=== PATIENT | female | born 1960 | race African-American/Black ===

== ENCOUNTER 2017-05-24 23:37 | Emergency (ER) | payer MEDICARE ==
[2017-05-24] MEDS ORDERED: Adacel (T-DAP) 0.5 ML VIAL ONE (23:52)
[2017-05-25] MEDS ORDERED: Bacitracin Zinc 1 Packet ONE ×2 (00:27→01:33)
[2017-05-25] MEDS ORDERED: Lidocaine 1% PF 5 ML VIAL ONE (00:27)
== END 2017-05-25 01:37 | disposition home or self-care (01) ==
LOC: ERS 23:37
DX: S91.311A Laceration without foreign body, right foot, initial encounter (principal); Z23 Encounter for immunization; I10 Essential (primary) hypertension; E11.9 Type 2 diabetes mellitus without complications; Z79.899 Other long term (current) drug therapy; Z79.4 Long term (current) use of insulin; W25.XXXA Contact with sharp glass, initial encounter
CPT/HCPCS: 12002; 90471; 90715; J2001

== ENCOUNTER 2017-12-25 08:55 | Emergency (ER) | payer MEDICARE ==
[2017-12-25] MEDS ORDERED: Ondansetron ODT 8 MG TAB ONE (09:35)
[2017-12-25] MEDS ORDERED: Famotidine 20 MG TAB ONE (09:35)
[2017-12-25] MEDS ORDERED: Mag-Al 1200 mg/1200 mg/30 ML UDCUP ONE (09:38)
[2017-12-25] MEDS ORDERED: Lidocaine Viscous Sol 2% 15 ml UD Cup ONE (09:38)
[2017-12-25 09:39] LABS: #Eosinphils 0.1 thou/uL (0.0-0.7); #Monocytes 0.4 thou/uL (0.11-0.59); #Neutrophils 10.2 thou/uL (1.40-6.50); %Eosinophils 0.8 % (0.0-10.0); %Lymphocytes 8.7 % (21.0-51.0); %Monocytes 3.7 % (0.0-10.0); %Neutrophils 86.7 % (42.0-75.0); Mean Corpuscular HGB CONC 34.2 g/dL (32.0-36.0); Mean Corpuscular Hemoglobin 27.2 pg (27.0-31.0); Mean Corpuscular Volume 79.6 fl (81.0-99.0); Mean Platelet Volume 9.4 fL (7.4-10.4); Platelet Count 219 thou/uL (130-400); RBC Distribution Width 14.1 % (11.5-14.5); Red Blood Cell (RBC) Count 5.89 mill/uL (4.20-5.40); White Blood Cell (WBC) Count 11.7 thou/uL (4.8-10.8)
[2017-12-25 09:56] LABS: ALT (SGPT) 28 U/L (8-55); AST (SGOT) 20 U/L (5-34); Albumin 4.5 g/dL (3.5-5.0); Alkaline Phosphatase 80 U/L (40-150); Anion Gap 16 mmol/L (10-20); BUN (Urea Nitrogen) 16 mg/dL (9.8-20.1); Bilirubin, Total 1.1 mg/dL (0.2-1.2); Calc. Creatinine Clearance 0 mL/min (70-130); Calcium 9.4 mg/dL (7.8-10.44); Carbon Dioxide 26 mmol/L (22-29); Chloride 103 mmol/L (98-107); Estimated GFR-MDRD 82; Globulin 3.1 g/dL (2.4-3.5); Glucose 246 mg/dL (70-105); Lipase 32 U/L (8-78); Potassium 3.8 mmol/L (3.5-5.1); Protein, Total 7.6 g/dL (6.0-8.3); Sodium 141 mmol/L (136-145)
[2017-12-25 11:18] LABS: Bilirubin Negative (Negative); Blood, Urine Negative (Negative); Clarity CLEAR (Clear); Glucose, Urine (Dipstick) >=1000 mg/dL (Negative); Leukocyte Negative (Negative); Nitrite Negative (Negative); Protein, Urine (Dipstick) 100 mg/dL (Neg-Trace); Specific Gravity, Urine 1.043 (1.002-1.036); Urobilinogen 0.2 mg/dL (0.2-1.0); pH, Urine 5.5 (5.0-9.0)
[2017-12-25 11:24] LABS: Bacteria/HPF None Seen HPF (None Seen); Hyaline Casts/LPF 0-3 HYALINE CAST LPF (0-3 Hyaline); Pathc Cast-AUWi Flag 0.43 (0-2.49)
== END 2017-12-25 11:31 | disposition home or self-care (01) ==
LOC: ERS 08:55
DX: K52.9 Noninfective gastroenteritis and colitis, unspecified (principal); I10 Essential (primary) hypertension; E11.9 Type 2 diabetes mellitus without complications; Z79.899 Other long term (current) drug therapy
CPT/HCPCS: 36415; 80053; 81003; 81015; 83690; 85025; 93005

== ENCOUNTER 2018-05-30 04:15 | Emergency (ER) | payer MEDICARE ==
--- NOTE | 2018-05-30 08:25 | RAD ---
CHEST 1 VIEW: HISTORY: Cough and congestion x 4 days. COMPARISON: 07/04/2014. FINDINGS: Normal cardiac silhouette. The lungs and pleural spaces are clear. No pneumothorax or osseous abnor malities. Surgical clips project over the right axilla. There is evidence of a right mastectomy. IMPRESSION: No acute cardiopulmonary process. POS: [facility]
== END 2018-05-30 05:35 | disposition home or self-care (01) ==
LOC: ERS 04:15
DX: J40 Bronchitis, not specified as acute or chronic (principal); E11.9 Type 2 diabetes mellitus without complications; I10 Essential (primary) hypertension; Z79.899 Other long term (current) drug therapy
CPT/HCPCS: 71045

== ENCOUNTER 2018-10-29 15:59 | Observation (INO) | payer MEDICARE ==
--- NOTE | 2018-10-29 16:30 | RAD ---
SINGLE VIEW CHEST: Date: 10/29/18 COMPARISON: 05/30/18. HISTORY: Intermittent chest pain for a week. FINDINGS: Single view of the chest shows a normal sized cardiomediastinal silhouette. There is no evidence of c onsolidation, mass, or pleural effusion. The bones are unremarkable. IMPRESSION: No evidence of acute cardiopulmonary disease. POS: [facility]
[2018-10-29] MEDS ORDERED: Azithromycin 500 MG VIAL ONE ×2 (16:36→18:10)
[2018-10-29] MEDS ORDERED: cefTRIAXone\\ROCEPHIN 1 GM VIAL ONE ×2 (16:37→18:10)
[2018-10-29 16:55] LABS: #Basophils 0.1 thou/uL (0.0-0.2); #Eosinphils 0.3 thou/uL (0.0-0.7); #Lymphocytes 2.9 thou/uL (1.20-3.40); #Monocytes 0.6 thou/uL (0.11-0.59); #Neutrophils 4.4 thou/uL (1.40-6.50); %Basophils 0.9 % (0.0-1.0); %Eosinophils 3.2 % (0.0-10.0); %Lymphocytes 34.9 % (21.0-51.0); %Monocytes 7.7 % (0.0-10.0); %Neutrophils 53.3 % (42.0-75.0); Hemoglobin 14.9 g/dL (12.0-16.0); Mean Corpuscular HGB CONC 34.9 g/dL (32.0-36.0); Mean Corpuscular Hemoglobin 27.4 pg (27.0-31.0); Mean Corpuscular Volume 78.4 fL (78.0-98.0); Mean Platelet Volume 10.9 fL (7.4-10.4); Platelet Count 200 thou/uL (130-400); Red Blood Cell (RBC) Count 5.43 mill/uL (4.20-5.40); White Blood Cell (WBC) Count 8.2 thou/uL (4.8-10.8)
[2018-10-29 17:10] LABS: ALT (SGPT) 21 U/L (8-55); AST (SGOT) 17 U/L (5-34); Albumin 4.4 g/dL (3.5-5.0); Alkaline Phosphatase 86 U/L (40-150); Anion Gap 15 mmol/L (10-20); BUN (Urea Nitrogen) 20 mg/dL (9.8-20.1); Bilirubin, Total 0.7 mg/dL (0.2-1.2); CK (CPK) 149 U/L (29-168); Calc. Creatinine Clearance 0 mL/min (70-130); Calcium 9.7 mg/dL (7.8-10.44); Carbon Dioxide 26 mmol/L (22-29); Chloride 102 mmol/L (98-107); Estimated GFR-MDRD 78; Globulin 2.8 g/dL (2.4-3.5); Glucose 197 mg/dL (70-105); Potassium 4.1 mmol/L (3.5-5.1); Protein, Total 7.2 g/dL (6.0-8.3); Sodium 139 mmol/L (136-145)
[2018-10-29] MEDS ORDERED: Nitroglycerin 2% Ointment 1 INCH/1 GM Packet ONE (18:10)
[2018-10-29] MEDS ORDERED: Aspirin Chewable 81 MG TAB ONE (19:42)
[2018-10-29] MEDS ORDERED: Sodium Chloride 0.9% 1,000 ML IV SCH (20:09)
[2018-10-29 20:11] LABS: Troponin I Less than 0.010 ng/mL (< 0.028)
[2018-10-30 00:27] LABS: Troponin I Less than 0.010 ng/mL (< 0.028)
[2018-10-30] MEDS ORDERED: Ondansetron ODT 4 MG TAB PO PRN (00:30)
[2018-10-30] MEDS ORDERED: Ondansetron PF 4 MG/2 ML Vial IVP PRN (00:30)
[2018-10-30] MEDS ORDERED: Acetaminophen 325 MG TAB PO PRN (00:30)
[2018-10-30] MEDS ORDERED: HumaLOG 300 UNITS/3 ML VIAL SC PRN (00:34)
[2018-10-30] MEDS ORDERED: Dextrose 50% Abboject 50 ML SYRINGE SLOW IVP PRN (00:35)
[2018-10-30] MEDS ORDERED: Dextrose 5% in Water 1,000 ML IV PRN (00:35)
[2018-10-30 01:29] VITALS: BMI 32.3
--- NOTE | 2018-10-30 01:29 | HP ---
PRIMARY CARE PHYSICIAN: Dr. Florencia Luevano. CHIEF COMPLAINT: Cough, shortness of breath, and chest tightness for 2 weeks. HISTORY OF PRESENT ILLNESS: Ms. Ramirez is a 58-year-old female with past medical history of hypertension; hyperlipidemia; diabetes mellitus, type 2; hepatitis B cirrhosis; and breast cancers, status post right-sided mastectomy in 2005, who had presented to [facility] due to cough, shortness of breath, and chest tightness over the last 2 weeks. She states the chest tightness comes when she is coughing. She also reports some chest tightness and also shortness of breath when up trying to walk or actually take a deep breath in. She had reported a mild low-grade fever and chills about 2 weeks ago when her symptoms started. However, this had improved. She also has been complaining of headache and some mild neck pain. However, this was improved after taking Motrin. During her initial workup, chest x-ray showed no acute cardiopulmonary process. However, the ED physician read it as a left lower lobe pneumonia. She was started on IV ceftriaxone and azithromycin. Her EKG remained in sinus rhythm. She remained afebrile with normal white count. Labs were essentially unremarkable, troponins were obtained and less than 0.010 x2. She had no further complaints of chest pain. However, she had intermittent cough with a slight wheeze. Plan was to admit for further observation, she will be placed on a playground monitor and also continued on IV antibiotics at this time. Blood cultures were obtained and pending at this time. REVIEW OF SYSTEMS: All other systems reviewed and found to be negative unless mentioned in the HPI. PAST MEDICAL HISTORY: Hypertension; hyperlipidemia; diabetes mellitus, type 2; history of breast cancer, status post right-sided mastectomy; and hepatitis B cirrhosis. PAST SURGICAL HISTORY: Hysterectomy and right-sided mastectomy. PSYCHIATRIC HISTORY: None. SOCIAL HISTORY: Denies any alcohol, tobacco, or illicit drug use. KNOWN ALLERGIES: Codeine, latex gloves, and morphine. CURRENT HOME MEDICATIONS: 1. Amlodipine 5 mg p.o. daily. 2. Entecavir 0.5 mg p.o. at bedtime. 3. Lantus 50 units subcu q.a.m. and 60 units subcu at bedtime. 4. Lisinopril 10 mg p.o. daily. 5. Metoprolol 50 mg p.o. daily. 6. Humalog insulin sliding scale subcu t.i.d. with meals. PHYSICAL EXAMINATION: VITAL SIGNS: BP was 152/73, pulse 81, respirations 22, temp 98.3 degrees Fahrenheit, and O2 saturations 96% on room air. GENERAL: Patient is awake, alert, and oriented x3. No acute distress noted. HEENT: Atraumatic and normocephalic. Pupils are round and reactive to light. Extraocular muscles intact. Moist mucous membranes noted. NECK: Soft and supple. No JVD. No bruit noted. CARDIOVASCULAR: Positive S1 and S2. Regular rate and rhythm. No murmur auscultated. RESPIRATORY: Coarse breath sounds heard at the left lung base, otherwise no wheezing, no rales noted. ABDOMEN: Soft, nontender. Bowel sounds present. No rebound, no guarding. MUSCULOSKELETAL: Strength 5+ bilaterally upper and lower extremities. Moves all extremities equal. No edema noted. NEUROLOGIC: Cranial nerves 2 through 12 grossly intact. No focal deficits noted. Speech intact and normal. Gait not assessed. SKIN: Warm, dry, and intact. No rashes. No lesions noted. PSYCHIATRIC: Good mood and affect. LABORATORY DATA: WBC 8.2, RBC 5.43, hemoglobin 14.9, and platelet 200. Sodium 139, potassium 4.1, bicarb 26, anion gap 15, BUN 20, creatinine 0.89, estimated GFR 78, and glucose 105. Troponin less than 0.010 x2. DIAGNOSTIC IMAGING: Chest x-ray single view, radiologist's read, no evidence of acute cardiopulmonary disease. However, left lung lower lobe infiltrate noted on personal read. ASSESSMENT/PLAN: 1. Urinary tract infection. Likely community-acquired pneumonia, blood cultures were obtained and pending at this time, continue on IV ceftriaxone and azithromycin daily and await further blood cultures. Continue on DuoNebs q.6 hours p.r.n. for wheezing and shortness of breath. Start patient on guaifenesin 600 mg b.i.d. 2. Chest pain, likely secondary to above. Serial troponins found to be negative x2. Third is pending at this time. We will place the patient on close monitoring with telemetry. A.m. team to further determine patient need for stress test at this time. Chest pain is likely secondary to underlying pneumonia and is present only when she is coughing. 3. Hypertension, currently stable. Continue patient's home regimen at this time. 4. Hyperlipidemia. Continue on the patient's home regimen. 5. History of hepatitis B with cirrhosis, AST and ALT stable at this time. Continue to monitor patient and also continue on home regimen. 6. Deep venous thrombosis and gastrointestinal prophylaxis. 7. Code status, full code. DISPOSITION: Pending further workup and clinical findings. Job ID: [id number]
[2018-10-30 05:42] LABS: #Basophils 0.1 thou/uL (0.0-0.2); #Eosinphils 0.3 thou/uL (0.0-0.7); #Lymphocytes 2.9 thou/uL (1.20-3.40); #Monocytes 0.7 thou/uL (0.11-0.59); #Neutrophils 4.1 thou/uL (1.40-6.50); %Basophils 1.1 % (0.0-1.0); %Eosinophils 3.2 % (0.0-10.0); %Lymphocytes 35.8 % (21.0-51.0); %Neutrophils 50.9 % (42.0-75.0); Hemoglobin 14.3 g/dL (12.0-16.0); Mean Corpuscular HGB CONC 35.5 g/dL (32.0-36.0); Mean Corpuscular Hemoglobin 27.5 pg (27.0-31.0); Mean Corpuscular Volume 77.4 fL (78.0-98.0); Mean Platelet Volume 9.7 fL (7.4-10.4); Platelet Count 215 thou/uL (130-400); RBC Distribution Width 13.9 % (11.5-14.5); White Blood Cell (WBC) Count 8.1 thou/uL (4.8-10.8)
[2018-10-30 06:06] LABS: Anion Gap 12 mmol/L (10-20); BUN (Urea Nitrogen) 16 mg/dL (9.8-20.1); Calc. Creatinine Clearance 106 mL/min (70-130); Calcium 8.9 mg/dL (7.8-10.44); Carbon Dioxide 25 mmol/L (22-29); Chloride 103 mmol/L (98-107); Estimated GFR-MDRD 90; Glucose 228 mg/dL (70-105); Potassium 3.7 mmol/L (3.5-5.1); Sodium 136 mmol/L (136-145)
[2018-10-30] MEDS: HumaLOG 300 UNITS/3 ML VIAL SC PRN ×3 (06:36→18:15)
[2018-10-30] MEDS: Metoprolol Tartrate 50 MG TAB PO SCH (08:23)
[2018-10-30] MEDS: Lisinopril 10 MG TAB PO SCH (08:23)
[2018-10-30] MEDS: Amlodipine 5 MG TAB PO SCH (08:24)
[2018-10-30] MEDS: Famotidine 20 MG TAB PO SCH ×2 (08:24→20:52)
[2018-10-30] MEDS: guaiFENesin ER 600 MG TAB PO SCH ×2 (08:25→20:52)
[2018-10-30] MEDS: Enoxaparin Sodium 40 MG/0.4 ML SYRINGE SC SCH (08:25)
[2018-10-30] MEDS: Insulin Glargine 50 UNITS in Pre-Filled Syringe 1 EACH SC SCH (08:26)
--- NOTE | 2018-10-30 11:30 | RAD ---
TWO VIEWS CHEST: DATE: 10/30/2018. PROVIDED CLINICAL HISTORY: Cough and chest pain. FINDINGS: Comparison 10/29/2018. Cardiac and mediastinal silhouette is within normal limits. No focal consolid ation, pleural fluid, or pneumothorax apparent. IMPRESSION: No evidence for an acute cardiopulmonary process. POS: [facility]
[2018-10-30] MEDS ORDERED: ISOVUE-370 76%-LOCM 1 ML ONE (13:59)
[2018-10-30] MEDS: Azithromycin 500 MG in Sodium Chloride 0.9% 250 ML 250 ML IVPB SCH (16:36)
--- NOTE | 2018-10-30 17:49 | PDOC.PN ---
- Subjective Encounter Start Date: 10/30/18 Encounter Start Time: 11:00 Pt seen for followup re: acute bronchitis. Reports cough, sputum. No fevers. c/o pleuritic chest pain. - Objective Resuscitation Status - Order Detail: 10/30/18 00:30 Resuscitation Status Routine Co-Sign Provider: Resuscitation Status: FULL: Full Resuscitation Vital Signs & Weight: Vital Signs (12 hours) Temp Pulse Resp BP BP Pulse Ox 10/30/18 15:01 98.1 F 74 20 144/67 H 94 L 10/30/18 11:03 98.6 F 74 16 132/67 96 10/30/18 08:24 83 10/30/18 08:23 133/58 L 10/30/18 07:07 98.8 F 86 16 133/58 L 92 L Weight Weight 194 lb 9.6 oz I&O: 10/29/18 10/30/18 10/31/18 06:59 06:59 06:59 Intake Total 340 423 Output Total 225 Balance 115 423 Result Diagrams: 10/30/18 05:29 10/30/18 05:29 Additional Labs: Accuchecks 10/30/18 10/30/18 10/29/18 10:46 05:35 20:32 POC Glucose 257 H 232 H 105 Phys Exam - Physical Examination Obese HEENT: moist MMs Neck: supple Respiratory: clear to auscultation bilateral Cardiovascular: RRR Gastrointestinal: soft Neurological: moves all 4 limbs Psychiatric: normal affect Dx/Plan (1) Acute bronchitis Code(s): J20.9 - ACUTE BRONCHITIS, UNSPECIFIED Status: Acute Comment: continue oxygen, steroids, antibiotics and bronchodilators (2) Pleuritic chest pain Code(s): R07.81 - PLEURODYNIA Status: Acute Comment: check CTA chest to r/o PE (3) HTN (hypertension) Code(s): I10 - ESSENTIAL (PRIMARY) HYPERTENSION Status: Chronic Comment: controlled (4) DM2 (diabetes mellitus, type 2) Status: Chronic Comment: continue accuchecks, insulin sliding scale - Plan * . Review of Systems - Review of Systems Respiratory: Cough, Pleuritic Pain, Sputum. negative: Dry, Shortness of Breath , Hemoptysis, SOB with Excertion, Wheezing Cardiovascular: chest pain. negative: palpitations, orthopnea, paroxysmal nocturnal dyspnea, edema, light headedness - Medications/Allergies Allergies/Adverse Reactions: Allergies Allergy/AdvReac Type Severity Reaction Status Date / Time morphine Allergy Intermediate elevated HR Verified 10/29/18 21:25 codeine Allergy Severe Verified 10/29/18 21:25 Hives Latex, Natural Rubber Allergy Verified 10/29/18 21:25 Medications: Current Medications Acetaminophen (Tylenol) 650 mg PO Q4H PRN PRN Reason: Headache/Fever/Mild Pain (1-3) Last Admin: 10/30/18 11:26 Dose: 650 mg Albuterol/Ipratropium (Duoneb) 3 ml NEB [id number] PRN PRN Reason: SOB &/or Wheezing Amlodipine Besylate (Norvasc) 5 mg PO DAILY [facility] Last Admin: 10/30/18 08:24 Dose: 5 mg Dextrose/Water (Dextrose 50%) 25 gm SLOW IVP PRN PRN PRN Reason: Hypoglycemia Enoxaparin Sodium (Lovenox) 40 mg SC 0900 [facility] Last Admin: 10/30/18 08:25 Dose: 40 mg Famotidine (Pepcid) 20 mg PO BID [facility] Last Admin: 10/30/18 08:24 Dose: 20 mg Glucagon (Glucagon) 1 mg IM PRN PRN PRN Reason: Hypoglycemia Guaifenesin (Mucinex) 600 mg PO Q12HR [facility] Last Admin: 10/30/18 08:25 Dose: 600 mg Insulin Glargine 60 units/ (Miscellaneous Medication) 0.6 mls @ 0 mls/hr SC HS [facility] Insulin Glargine 50 units/ (Miscellaneous Medication) 0.5 mls @ 0 mls/hr SC QAM [facility] Last Admin: 10/30/18 08:26 Dose: 0.5 mls Azithromycin 500 mg/ Sodium (Chloride) 250 mls @ 250 mls/hr IVPB Q24HR [facility] Last Admin: 10/30/18 16:36 Dose: 250 mls Ceftriaxone Sodium 1 gm/ (Sodium Chloride) 100 mls @ 200 mls/hr IVPB Q24HR [facility] Dextrose/Water (D5w) 1,000 mls @ 0 mls/hr IV .Q0M PRN PRN Reason: Hypoglycemia Insulin Human Lispro (Humalog) 0 units SC .MILD SLIDING SCALE PRN PRN Reason: Mild Correctional Scale Last Admin: 10/30/18 11:26 Dose: 4 units Insulin Human Lispro (Humalog) 0 units SC .BEDTIME SLIDING SC PRN PRN Reason: Bedtime Correctional Scale Lisinopril (Zestril) 10 mg PO DAILY [facility] Last Admin: 10/30/18 08:23 Dose: 10 mg Metoprolol Tartrate (Lopressor) 50 mg PO DAILY [facility] Last Admin: 10/30/18 08:23 Dose: 50 mg Ondansetron HCl (Zofran Odt) 4 mg PO Q6H PRN PRN Reason: Nausea/Vomiting Ondansetron HCl (Zofran) 4 mg IVP Q6H PRN PRN Reason: Nausea/Vomiting (Entecavir [ (Entecavir] 0.5 Mg) 0 each PO HS [facility] Sodium Chloride (Flush - Normal Saline) 10 ml IVF Q12HR [facility] Last Admin: 10/30/18 08:27 Dose: 10 ml Sodium Chloride (Flush - Normal Saline) 10 ml IVF PRN PRN PRN Reason: Saline Flush
[2018-10-30] MEDS: cefTRIAXone\\ROCEPHIN 1 GM in Sodium Chloride 0.9% 100 ML IVPB SCH (20:48)
[2018-10-30] MEDS ORDERED: Insulin Glargine 60 UNITS in Pre-Filled Syringe 1 EACH SC SCH (21:00)
[2018-10-30] MEDS ORDERED: ENTECAVIR 0.5 MG PO SCH (21:00)
[2018-10-30] MEDS: traMADol HCl 50 MG TAB PO PRN (21:24)
[2018-10-30 22:55] LABS: Bilirubin Negative (Negative); Blood, Urine Negative (Negative); Clarity CLEAR (Clear); Glucose, Urine (Dipstick) >=1000 mg/dL (Negative); Leukocyte Negative (Negative); Nitrite Negative (Negative); Protein, Urine (Dipstick) Negative (Neg-Trace); Specific Gravity, Urine 1.039 (1.002-1.036); pH, Urine 5.5 (5.0-9.0)
[2018-10-30 22:58] LABS: Bacteria/HPF None Seen HPF (None Seen); Hyaline Casts/LPF 0-3 HYALINE CAST LPF (0-3 Hyaline); RBC/HPF 0-3 HPF (0-3); Squamous Epithelial None Seen HPF (0-3); WBC/HPF 0-3 HPF (0-3)
[2018-10-30 22:59] LABS: Urine Culture Reflex No No
[2018-10-31] MEDS: traMADol HCl 50 MG TAB PO PRN ×2 (02:28→06:48)
[2018-10-31] MEDS: HumaLOG 300 UNITS/3 ML VIAL SC PRN ×2 (06:48→18:11)
[2018-10-31] MEDS: guaiFENesin ER 600 MG TAB PO SCH (09:12)
[2018-10-31] MEDS: Famotidine 20 MG TAB PO SCH (09:12)
[2018-10-31] MEDS: Lisinopril 10 MG TAB PO SCH (09:12)
[2018-10-31] MEDS: Enoxaparin Sodium 40 MG/0.4 ML SYRINGE SC SCH (09:13)
[2018-10-31] MEDS: Metoprolol Tartrate 50 MG TAB PO SCH (09:14)
[2018-10-31] MEDS: Amlodipine 5 MG TAB PO SCH (09:18)
--- NOTE | 2018-10-31 09:31 | CT ---
CT ANGIOGRAM CHEST 10/30/18 COMPARISON: None. HISTORY: Cough, shortness of breath and chest pain. TECHNIQUE: Axial CT imaging at 2.5 mm intervals from thoracic inlet through upper abdomen with IV contrast using a CT angiogram protocol. Coronal and oblique sagittal 3D reformatted imaging obtained. FINDINGS: There appears to be a large nodule associated with the left lobe of the thyroid gland measuring in th e 4.3 cm range. Dedicated thyroid ultrasound advised. No axillary lymphadenopathy. Mastectomy changes are noted on the right. There is no axillary lymphadenopathy noted. No mediastinal or hilar lymphadenopathy is seen. Limited assessment of the upper abdomen demonstrates no acute finding. There is questionable mild mid esophageal wall thickening versus underdistention. Clinical correlatio n is required. Evaluation of the pulmonary arterial vasculature for pulmonary embolism is slightly suboptimal second cathi to suboptimal timing of the contrast bolus. There is no convincing evidence for acute pulmonary a rterial embolism. Coronary arterial calcification is present. No aneurysm or dissection of the imaged aorta seen. There is increased linear density in the superomedial aspect of the right upper lobe near the right l toño apex, possibly on the basis of prior radiation therapy given evidence of right mastectomy. No dis crete pulmonary parenchymal mass lesion or nodule is appreciated on the right. The left lung appears grossly unremarkable. Review of the osseous structures demonstrates no worrisom e lytic or blastic lesion. IMPRESSION: No evidence for pulmonary arterial embolism. Please see above discussion. POS: [facility]
--- NOTE | 2018-10-31 13:34 | RAD ---
THREE VIEWS LUMBAR SPINE: HISTORY: Pain radiating to the left hip. FINDINGS: Five lumbar-type vertebral bodies. Lumbar spine vertebral body height is maintained. Disk space hei ghts are preserved. No spondylolisthesis or spondylolysis. Mild degenerative change in the distal thoracic spine. IMPRESSION: Unremarkable lumbar spine 3 views. POS: [facility]
[2018-10-31] MEDS: Insulin Glargine 50 UNITS in Pre-Filled Syringe 1 EACH SC SCH (16:39)
[2018-10-31] MEDS: Azithromycin 500 MG in Sodium Chloride 0.9% 250 ML 250 ML IVPB SCH (17:09)
[2018-10-31] MEDS: cefTRIAXone\\ROCEPHIN 1 GM in Sodium Chloride 0.9% 100 ML IVPB SCH (18:28)
[2018-10-31 19:16] VITALS: BP 134/71; TEMP 97.9
--- NOTE | 2018-10-31 21:44 | DIS ---
DATE OF ADMISSION: 10/29/2018 DATE OF DISCHARGE: 10/31/2018 PRIMARY CARE PROVIDER: Dr. Florencia Luevano. DISCHARGE DIAGNOSES: 1. Acute bronchitis. 2. Nodule. CONDITION OF THE PATIENT ON THE DAY OF DISCHARGE: Stable. I assessed Ms. Ramirez on the day of discharge. She denies any chest pain or shortness of breath. Vital signs are stable. S1 and S2 are heard, regular. Lungs are clear to auscultation bilaterally. DISCHARGE MEDICATIONS: The patient reports that she has a rescue inhaler at home and has been advised to use that. In addition, her discharge medications include; 1. Amlodipine 5 mg daily. 2. Entecavir 0.5 mg at bedtime. 3. Humalog insulin by sliding scale. 4. Lantus insulin 60 units at bedtime and 50 units in the morning. 5. Lisinopril 10 mg daily. 6. Metoprolol tartrate 50 mg daily. 7. Multivitamins 1 tablet daily. 8. Mucinex 600 mg 2 times a day. 9. Azithromycin 250 mg daily for 4 more days. 10. Cefdinir 300 mg 2 times a day for 7 more days. HOSPITAL COURSE: Ms. Ramirez is a pleasant 58-year-old lady, who was admitted to [facility] for acute bronchitis on October 29, 2018. She improved with bronchodilators and antibiotics. CT angiogram of the chest did not show any evidence of pulmonary embolism. She had a large nodule associated with the left lobe of the thyroid gland measuring in the 4.3 cm range. Radiologist recommends dedicated thyroid ultrasound. The patient reports that she already had investigations in this direction. She is advised to follow up with her primary care provider regarding the thyroid nodule. At the time of this dictation, preliminary blood cultures are negative. She is advised to follow up with her primary care provider for final blood culture report. Many thanks for allowing me to participate in the patient's care. Please feel free to contact me with any questions or concerns. DISCHARGE DESTINATION: Home. Job ID: [id number]
== END 2018-10-31 19:48 | disposition home or self-care (01) ==
LOC: ERS 15:59 → 2SW 20:02
PROVIDERS: ADMIT Internal Medicine; ATTEND Internal Medicine
DX: J20.9 Acute bronchitis, unspecified (principal); E04.1 Nontoxic single thyroid nodule; I10 Essential (primary) hypertension; E78.5 Hyperlipidemia, unspecified; E11.9 Type 2 diabetes mellitus without complications; B19.10 Unspecified viral hepatitis B without hepatic coma; K74.60 Unspecified cirrhosis of liver; Z85.3 Personal history of malignant neoplasm of breast; Z90.11 Acquired absence of right breast and nipple; Z90.710 Acquired absence of both cervix and uterus; Z88.5 Allergy status to narcotic agent; Z91.040 Latex allergy status; Z79.4 Long term (current) use of insulin; Z79.2 Long term (current) use of antibiotics; Z79.899 Other long term (current) drug therapy
CPT/HCPCS: 71045; 71046; 71275; 72100; 80048; 80053; 81001; 82550; 82962 ×3; 84484 ×2; 85025 ×2; 87040; 93005; 96365; 96366 ×2; 96367; 96372 ×2; 96375; 97139 ×2; 99285; G0378 ×2; 36415; 36416; J0456; J0696; J1650; J1825; J2405; J7050; Q0162; Q9966

== ENCOUNTER 2019-07-25 07:52 | Observation (INO) | payer MEDICARE ==
[2019-07-25 08:25] LABS: #Basophils 0.1 thou/uL (0.0-0.2); #Eosinphils 0.2 thou/uL (0.0-0.7); #Lymphocytes 2.8 thou/uL (1.20-3.40); #Monocytes 0.9 thou/uL (0.11-0.59); #Neutrophils 6.4 thou/uL (1.40-6.50); %Basophils 0.6 % (0.0-1.0); %Eosinophils 1.5 % (0.0-10.0); %Lymphocytes 27.2 % (21.0-51.0); %Monocytes 8.2 % (0.0-10.0); %Neutrophils 62.5 % (42.0-75.0); Hemoglobin 14.3 g/dL (12.0-16.0); Mean Corpuscular HGB CONC 34.9 g/dL (32.0-36.0); Mean Corpuscular Hemoglobin 27.1 pg (27.0-31.0); Mean Corpuscular Volume 77.7 fL (78.0-98.0); Mean Platelet Volume 9.7 fL (7.4-10.4); Platelet Count 195 thou/uL (130-400); RBC Distribution Width 14.5 % (11.5-14.5); Red Blood Cell (RBC) Count 5.28 mill/uL (4.20-5.40); White Blood Cell (WBC) Count 10.3 thou/uL (4.8-10.8)
[2019-07-25 08:53] LABS: ALT (SGPT) 21 U/L (8-55); AST (SGOT) 16 U/L (5-34); Albumin 4.3 g/dL (3.4-4.8); Alkaline Phosphatase 77 U/L (40-110); Anion Gap 17 mmol/L (10-20); BUN (Urea Nitrogen) 18 mg/dL (9.8-20.1); Bilirubin, Total 0.9 mg/dL (0.2-1.2); CK (CPK) 184 U/L (29-168); Calc. Creatinine Clearance 0 mL/min (70-130); Calcium 9.3 mg/dL (7.8-10.44); Carbon Dioxide 23 mmol/L (23-31); Chloride 100 mmol/L (98-107); Estimated GFR-MDRD 76; Glucose 356 mg/dL (80-115); Lipase 47 U/L (8-78); Protein, Total 7.3 g/dL (6.0-8.3); Sodium 136 mmol/L (136-145)
[2019-07-25] MEDS ORDERED: ADENOSINE 60 MG/20 ML VIAL ONE (09:06)
--- NOTE | 2019-07-25 09:29 | RAD ---
CHEST 1 VIEW: Date: 07/25/19 HISTORY: Cough and chest pain. COMPARISON: 10/30/18. FINDINGS: Surgical clips in the right axilla region. Heart size is normal. The lungs are clear. IMPRESSION: No significant acute intrathoracic disease. POS: [facility]
[2019-07-25] MEDS ORDERED: Nitroglycerin 2% Ointment 1 INCH/1 GM Packet ONE (10:11)
[2019-07-25] MEDS ORDERED: Aspirin Chewable 81 MG TAB ONE (10:11)
--- NOTE | 2019-07-25 11:09 | PDOC.FPRHP ---
- History of Present Illness Chief Complaint: Chest pain History of Present Illness: Patient is a 59 yo female with PMHx of breast cancer on right s/p mastectomy, who presented to the ER earlier this morning with complaint of right-sided chest pain that started yesterday when she was washing dishes. Pain described as sharp, radiating from right shoulder into right chest and right neck. Pain worsens with exertion and gets better with rest. Patient was admitted to [facility] in October 2018 with similar pain and was found to have Acute Bronchitis. In addition to the chest pain, patient states for last 2 days she has had cough, sore throat, and diarrhea with 2 episodes of loose stools earlier today. Pt states she had stress test at [facility] 1-2 years ago that she could not complete. Also had a stress test in 2013 at [facility] which was normal. Last admission in October, chest CTA incidentally found a 4.3 cm thyroid nodule but pt says she did not follow up outpatient. Pt additionally reports she has been out of her home Lantus medication and has been using only Humalog. She says her blood glucose has been at a better level although glucose today on admission labs is 356. ED Course: CXR normal. Given Nitro x1, ASA 324 mg. - Allergies/Adverse Reactions Allergies Allergy/AdvReac Type Severity Reaction Status Date / Time morphine Allergy Intermediate elevated HR Verified 07/25/19 12:38 codeine Allergy Severe Verified 07/25/19 12:38 Hives Iodinated Contrast Media Allergy Verified 07/25/19 12:39 Latex, Natural Rubber Allergy Verified 07/25/19 12:38 - Home Medications Medication Instructions Recorded Confirmed Type HumaLOG [HumaLOG Vial] 0 unit SC TID-WM PRN 04/04/14 07/25/19 History Insulin Glargine [Lantus Vial] 50 units SC DAILY 04/04/14 07/25/19 History Insulin Glargine [Lantus Vial] 60 units SC HS 04/04/14 07/25/19 History Lisinopril 10 mg PO DAILY 04/04/14 07/25/19 History Metoprolol Tartrate 50 mg PO DAILY 04/04/14 07/25/19 History Multivit, Chewable SF 1 tab PO DAILY 04/04/14 07/25/19 History [Multivitamin, Chewable] Entecavir 0.5 mg PO HS 10/29/18 07/25/19 History Hydrochlorothiazide 25 mg PO DAILY 07/25/19 07/25/19 History Comments: Lantus 60u SC nightly Humulog SSI HCTZ 5 mg dose. Lisinopril 10 mg daily Metoprolol 50 mg daily Hep B therapy (Intecavir?) Doesn't take amlodipine anymore due to feet swelling. 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 Magaña [facility] PSHx: Mastectomy on Right, Hysterectomy 2/2 fibroids FHx: Mom- breast cancer, 75 2/2 heart attack, Dad- diabetes, Paternal Grandparents- Diabetes Social: No alcohol use reported, No smoking use reported- smoked in her 20's Pt reports being full code. - Review of Systems General: denies: fever/chills, weight/appetite/sleep changes, fatigue Eyes: denies: vision changes ENT: denies: nasal congestion, rhinorrhea Respiratory: reports: cough. denies: shortness of breath Cardiovascular: reports: chest pain. denies: palpitation, edema Gastrointestinal: reports: diarrhea. denies: nausea, vomiting, constipation, abdominal pain Genitourinary: denies: dysuria Skin: denies: rashes, lesions Musculoskeletal: denies: pain, tenderness, swelling Neurological: reports: numbness. denies: weakness - Vital signs BP: [137/86] HR: [96] RR: [18] Tmax: [99.0] Pox: [98]% on [RA] Wt: 72.6 kg - Physical Exam Constitutional: NAD, awake, alert and oriented, well developed HEENT: normocephalic and atraumatic, EOMI, conjunctiva clear, grossly normal vision, grossly normal hearing, MMM Neck: supple, FROM, no JVD -Chest: mildly TTP over right chest and right upper back Heart: RRR, normal S1/S2, no murmurs/rubs/gallops, pulses present, no edema Lungs: CTAB, no respiratory distress, good air movement, no rales/rhonchi, no wheezing Abdomen: soft, non-tender, bowel sounds present, no masses/distention Musculoskeletal: normal structure, normal tone, ROM grossly normal Neurological: no focal deficit -Neurological: decreased sensation in bilat LE Skin: no rash/lesions, good turgor Heme/Lymphatic: no unusual bruising or bleeding Psychiatric: normal mood and affect, intact recent and remote memory FMR H&P: Results - Labs Result Diagrams: 07/25/19 08:13 07/25/19 08:13 Lab results: WBC 10.3 thou/uL (4.8-10.8) 07/25/19 08:13 Hgb 14.3 g/dL (12.0-16.0) 07/25/19 08:13 Hct 41.0 % (36.0-47.0) 07/25/19 08:13 MCV 77.7 fL (78.0-98.0) L 07/25/19 08:13 Plt Count 195 thou/uL (130-400) 07/25/19 08:13 Neutrophils % 62.5 % (42.0-75.0) 07/25/19 08:13 Sodium 136 mmol/L (136-145) 07/25/19 08:13 Potassium 4.0 mmol/L (3.5-5.1) 07/25/19 08:13 Chloride 100 mmol/L (98-107) 07/25/19 08:13 Carbon Dioxide 23 mmol/L (23-31) 07/25/19 08:13 BUN 18 mg/dL (9.8-20.1) 07/25/19 08:13 Creatinine 0.91 mg/dL (0.6-1.1) 07/25/19 08:13 Glucose 356 mg/dL (80-115) H 07/25/19 08:13 Calcium 9.3 mg/dL (7.8-10.44) 07/25/19 08:13 Total Bilirubin 0.9 mg/dL (0.2-1.2) 07/25/19 08:13 AST 16 U/L (5-34) 07/25/19 08:13 ALT 21 U/L (8-55) 07/25/19 08:13 Alkaline Phosphatase 77 U/L (40-110) 07/25/19 08:13 Creatine Kinase 184 U/L (29-168) H 07/25/19 08:13 Serum Total Protein 7.3 g/dL (6.0-8.3) 07/25/19 08:13 Albumin 4.3 g/dL (3.4-4.8) 07/25/19 08:13 Lipase 47 U/L (8-78) 07/25/19 08:13 - EKG Interpretation EKG: NSR - Radiology Interpretation Chest x-ray Status: report reviewed by me (no acute pathology) FMR H&P: A/P - Problem List (1) Atypical chest pain Current Visit: Yes Status: Acute Code(s): R07.89 - OTHER CHEST PAIN (2) Thyroid nodule Current Visit: Yes Status: Acute Code(s): E04.1 - NONTOXIC SINGLE THYROID NODULE (3) Cirrhosis of liver due to hepatitis B Current Visit: Yes Status: Acute Code(s): K74.60 - UNSPECIFIED CIRRHOSIS OF LIVER; B19.10 - UNSPECIFIED VIRAL HEPATITIS B WITHOUT HEPATIC COMA (4) History of breast cancer Current Visit: Yes Status: Acute Code(s): Z85.3 - PERSONAL HISTORY OF MALIGNANT NEOPLASM OF BREAST (5) Insulin dependent diabetes mellitus Current Visit: Yes Status: Acute Code(s): E11.9 - TYPE 2 DIABETES MELLITUS WITHOUT COMPLICATIONS; Z79.4 - OPERATION MANAGER (CURRENT) USE OF INSULIN (6) Neuropathy Current Visit: Yes Status: Acute Code(s): G62.9 - POLYNEUROPATHY, UNSPECIFIED (7) DM2 (diabetes mellitus, type 2) Current Visit: No Status: Chronic Qualifiers: Diabetes mellitus care home insulin use: with assistant terminal manager use Diabetes mellitus complication status: with neurologic complications Diabetes mellitus complication detail: with unspecified neuropathy Qualified Code(s): E11.40 - Type 2 diabetes mellitus with diabetic neuropathy, unspecified; Z79.4 - MCC (current) use of insulin Comment: continue accuchecks, insulin sliding scale (8) HTN (hypertension) Current Visit: No Status: Chronic Code(s): I10 - ESSENTIAL (PRIMARY) HYPERTENSION Qualifiers: Hypertension type: unspecified Qualified Code(s): I10 - Essential (primary ) hypertension Comment: controlled - Plan Patient is a 59 yo female with PMHx of Right Breast Cancer s/p mastectomy, HTN, HLD, Cirrhosis, IDDM, Neuropathy, and thyroid nodule who presents with chest pain: #Atypical Chest Pain -r/o ACS, consider etiologies d/t post-radiation pain vs costochondritis/MSK vs thyroid issue -Stress test in AM, will consult Cardio if abnormal results -plan to repeat CXR if fever develops or clinical exam changes -Heart score 4 -initial trop neg, will trend -EKG shows normal sinus rhythm -vitals q4h, monitor I/Os, place on telemetry #Thyroid nodule -4.3 cm nodule found incidentally on Chest CTA in October 2018, was told to f/u outpatient but never did -will need Thyroid U/S as outpatient -TSH ordered #Hx of Breast Cancer on Right -Chest CTA in October 2018 showed a linear density in RUL of lung, possibly d/t post-radiation changes -consider repeating chest CT if chest pain persists otherwise follow up outpatient #Cirrhosis 2/2 Hepatitis B -known to Dr. Magaña at [facility] -currently receiving Hep B treatment #IDDM -continue home Lantus 60 units HS -Humalog moderate SSI #HTN -continue home meds: Lisinopril, HCTZ -hold home Metoprolol until after stress test -Amlodipine recently discontinued d/t LE edema #HLD -not currently on a statin -check Lipid panel in AM #Neuropathy of LE -likely d/t DM -not currently taking any medications for symptoms Diet: Heart Healthy, make NPO at midnight for stress test VTE: SCDs, Lovenox 40 Code: FULL PCP: [facility] Dispo: Stable, admitted to observation on telemetry unit. Plan for stress test in AM. Consider further imaging to workup thyroid nodule and findings on CT scan from last admission. Anticipate LOS <48 hrs. FMR H&P: Upper Level - Pertinent history I was present with Dr. Delgado during the HPI interview. I scribed the above document. I made edits as needed. See above. - Pertinent findings Pt had tenderness to palpation along her right upper chest and back. Said pain was more mild than the pain she felt prior to admission. Cardio: RRR, no murmurs or gallops. - Plan Date/Time: 07/25/19 1107 Grabiel Yoder PGY-3 have evaluated this patient and agree with findings/ plan as outlined by general intern resident. Pertinent changes/additions are listed here. I reviewed the above A/P and agree with the plan above. I made edits above. See above for detailed plan. At this time patient likely needs outpatient f/u and imaging for Thyroid findings and CT findings. We will rule out any cardiac or infectious pathology with stress and continuous tele monitoring. Addendum - Attending - Attending Attestation Date/Time: 07/25/19 0906 I personally evaluated the patient and discussed the management with Dr. Delgado and Dr. Traylor I agree with the History, Examination, Assessment and Plan documented above with any addition or exceptions noted below. Right sided chest pain. Now resolved. Underwent stress testing today. Awaiting results. Ok to d/c if negative. Follow up with PCP for further workup. Wilmer
[2019-07-25 11:51] LABS: Troponin I Less than 0.010 ng/mL (< 0.028)
[2019-07-25] MEDS ORDERED: Ondansetron ODT 4 MG TAB PO PRN (12:10)
[2019-07-25] MEDS ORDERED: Dextrose 5% in Water 1,000 ML IV PRN (12:10)
[2019-07-25] MEDS ORDERED: Acetaminophen 325 MG TAB PO PRN (12:10)
[2019-07-25] MEDS ORDERED: Ondansetron PF 4 MG/2 ML Vial IVP PRN (12:10)
[2019-07-25] MEDS ORDERED: Acetaminophen 650 MG Suppository PR PRN (12:10)
[2019-07-25] MEDS ORDERED: Nitroglycerin 0.4 MG TAB (25 Tab Bottle) PO PRN (12:10)
[2019-07-25] MEDS ORDERED: Calcium Carbonate 500 MG ChewTAB PO PRN (12:10)
[2019-07-25] MEDS ORDERED: Senokot S 8.6-50 MG TAB PO PRN (12:10)
[2019-07-25] MEDS ORDERED: Dextrose 50% Abboject 50 ML SYRINGE SLOW IVP PRN (12:10)
[2019-07-25 12:45] VITALS: BMI 30.9
[2019-07-25 16:36] LABS: Troponin I Less than 0.010 ng/mL (< 0.028)
[2019-07-25] MEDS: HumaLOG 300 UNITS/3 ML VIAL SC PRN (17:19)
[2019-07-25] MEDS ORDERED: HumaLOG 300 UNITS/3 ML VIAL SC PRN (20:34)
[2019-07-25] MEDS ORDERED: Entecavir [Entecavir] 0.5 MG PO SCH (21:00)
[2019-07-25] MEDS ORDERED: Insulin Glargine 60 UNITS in Pre-Filled Syringe 1 EACH SC SCH (21:00)
[2019-07-26 04:52] LABS: #Basophils 0.1 thou/uL (0.0-0.2); #Eosinphils 0.2 thou/uL (0.0-0.7); #Lymphocytes 2.6 thou/uL (1.20-3.40); %Eosinophils 2.2 % (0.0-10.0); %Lymphocytes 29.7 % (21.0-51.0); %Monocytes 11.2 % (0.0-10.0); %Neutrophils 55.9 % (42.0-75.0); Hemoglobin 14.2 g/dL (12.0-16.0); Mean Corpuscular HGB CONC 36.1 g/dL (32.0-36.0); Mean Corpuscular Hemoglobin 28.1 pg (27.0-31.0); Mean Corpuscular Volume 77.8 fL (78.0-98.0); Mean Platelet Volume 9.7 fL (7.4-10.4); Platelet Count 187 thou/uL (130-400); RBC Distribution Width 14.3 % (11.5-14.5); Red Blood Cell (RBC) Count 5.04 mill/uL (4.20-5.40); White Blood Cell (WBC) Count 8.9 thou/uL (4.8-10.8)
[2019-07-26 05:15] LABS: Anion Gap 16 mmol/L (10-20); BUN (Urea Nitrogen) 12 mg/dL (9.8-20.1); Calc. Creatinine Clearance 102 mL/min (70-130); Carbon Dioxide 24 mmol/L (23-31); Cardiac Risk 6.3 (Less than 4.5); Chloride 102 mmol/L (98-107); Cholesterol 182 mg/dl (< 200 Desired); Estimated GFR-MDRD Greater than 90; Glucose 241 mg/dL (80-115); HDL Cholesterol 29 mg/dL (>60 Neg Risk); LDL Cholesterol, Calculated 98 mg/dL; Potassium 3.9 mmol/L (3.5-5.1); Sodium 138 mmol/L (136-145); Triglycerides 276 mg/dL (Less than 150)
[2019-07-26] MEDS: HumaLOG 300 UNITS/3 ML VIAL SC PRN ×2 (06:09→12:03)
[2019-07-26] MEDS ORDERED: Cepastat Lozenges 1 LOZ PO PRN (07:47)
--- NOTE | 2019-07-26 07:55 | PDOC.FM ---
- Subjective Subjective: Patient seen sitting up at bedside this morning. States she has had some achy chest pain on right side and shoulder, rates 5 out of 10 in severity. Pain improved somewhat with Tylenol dose yesterday. Patient complains of sore throat. Had stress test completed yesterday, results still pending. Patient says she has been tried on several statins in the past but each time her legs with swell and were very painful. - Objective Vital Signs & Weight: Vital Signs (12 hours) Temp Pulse Resp BP Pulse Ox 07/26/19 04:37 98.3 F 97 18 137/69 96 07/25/19 23:20 98.2 F 91 16 138/64 94 L Weight Weight 83.053 kg I&O: 07/25/19 07/26/19 07/27/19 06:59 06:59 06:59 Intake Total 720 Output Total 900 Balance -180 Result Diagrams: 07/26/19 04:40 07/26/19 04:40 Phys Exam - Physical Examination Constitutional: NAD HEENT: moist MMs, sclera anicteric Neck: no JVD, supple, full ROM Respiratory: no wheezing, no rales, no rhonchi, clear to auscultation bilateral Cardiovascular: RRR, no significant murmur Gastrointestinal: soft, non-tender, positive bowel sounds Musculoskeletal: no edema, pulses present Neurological: normal sensation, moves all 4 limbs Psychiatric: normal affect, A&O x 3 Skin: no rash, normal turgor Dx/Plan (1) Atypical chest pain Code(s): R07.89 - OTHER CHEST PAIN Status: Acute (2) Thyroid nodule Code(s): E04.1 - NONTOXIC SINGLE THYROID NODULE Status: Acute (3) Cirrhosis of liver due to hepatitis B Code(s): K74.60 - UNSPECIFIED CIRRHOSIS OF LIVER; B19.10 - UNSPECIFIED VIRAL HEPATITIS B WITHOUT HEPATIC COMA Status: Acute (4) History of breast cancer Code(s): Z85.3 - PERSONAL HISTORY OF MALIGNANT NEOPLASM OF BREAST Status: Acute (5) Insulin dependent diabetes mellitus Code(s): E11.9 - TYPE 2 DIABETES MELLITUS WITHOUT COMPLICATIONS; Z79.4 - DENTURE PACKER (CURRENT) USE OF INSULIN Status: Acute (6) Neuropathy Code(s): G62.9 - POLYNEUROPATHY, UNSPECIFIED Status: Acute (7) DM2 (diabetes mellitus, type 2) Status: Chronic Qualifiers: Diabetes mellitus intermediate insulin use: with terminal superintendent use Diabetes mellitus complication status: with neurologic complications Diabetes mellitus complication detail: with unspecified neuropathy Qualified Code(s): E11.40 - Type 2 diabetes mellitus with diabetic neuropathy, unspecified; Z79.4 - longterm (current) use of insulin (8) HTN (hypertension) Code(s): I10 - ESSENTIAL (PRIMARY) HYPERTENSION Status: Chronic Qualifiers: Hypertension type: unspecified Qualified Code(s): I10 - Essential (primary ) hypertension - Plan Plan: Patient is a 59 yo female with PMHx of Right Breast Cancer s/p mastectomy, HTN, HLD, Cirrhosis, IDDM, Neuropathy, and thyroid nodule who presents with chest pain: #Atypical Chest Pain -r/o ACS, consider etiologies d/t post-radiation pain vs costochondritis/MSK vs thyroid issue -Stress test completed 07/25, results pending. Will consult Cardio if abnormal results -plan to repeat CXR if fever develops or clinical exam changes -Heart score 4 -trop neg x3 -EKG shows normal sinus rhythm -vitals q4h, monitor I/Os, place on telemetry -start henry. Naproxen 500 BID #Thyroid nodule -4.3 cm nodule found incidentally on Chest CTA in October 2018, was told to f/u outpatient but never did -will need Thyroid U/S as outpatient -TSH 2.12 #Hx of Breast Cancer on Right -Chest CTA in October 2018 showed a linear density in RUL of lung, possibly d/t post-radiation changes -consider repeating chest CT if chest pain persists otherwise follow up outpatient #Cirrhosis 2/2 Hepatitis B -known to Dr. Magaña at [facility] -currently receiving Hep B treatment #IDDM -continue home Lantus 60 units HS -Humalog moderate SSI #HTN -continue home meds: Lisinopril, HCTZ, Metoprolol -Amlodipine recently discontinued d/t LE edema #HLD -not currently on a statin-patient states has tried multiple statins in past and each time has caused painful LE with swelling -Lipid panel: total chol 182, HDL 29, LDL 98, triglycerides 276 -ASCVD 10 yr risk 24.2% #Neuropathy of LE -likely d/t DM -not currently taking any medications for symptoms Diet: Heart Healthy VTE: Lovenox 40 Code: FULL PCP: [facility] Dispo: Stable, admitted to observation on telemetry unit. Stress test results pending. Will need further imaging as outpatient to workup thyroid nodule and findings on CT scan from last admission. Anticipate discharge later today if stress test results normal. Addendum - Attending - Attending Attestation Date/Time: 07/26/19 2428 I personally evaluated the patient and discussed the management with the team. I agree with the History, Examination, Assessment and Plan documented above with any addition or exceptions noted below. No chest pain this AM and negative stress. Ok for d/c. I stressed the importance of f/u for the thyroid nodule and that cancer was in the differential. 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 She voiced understanding and agreement.
[2019-07-26] MEDS ORDERED: Lisinopril 10 MG TAB PO SCH (09:00)
[2019-07-26] MEDS ORDERED: Naproxen 500 MG TAB PO SCH (09:00)
[2019-07-26] MEDS ORDERED: Hydrochlorothiazide 25 MG TAB PO SCH (09:00)
[2019-07-26] MEDS ORDERED: Multivit, Chewable SF 1 TAB PO SCH (09:00)
[2019-07-26] MEDS ORDERED: Metoprolol Tartrate 50 MG TAB PO SCH (09:00)
[2019-07-26] MEDS ORDERED: Enoxaparin Sodium 40 MG/0.4 ML SYRINGE SC SCH (09:00)
[2019-07-26] MEDS ORDERED: Insulin Glargine 25 UNITS in Pre-Filled Syringe 1 EACH SC SCH ×2 (10:00→21:00)
--- NOTE | 2019-07-26 11:31 | NM ---
CARDIAC SPECT: HISTORY: A 59-year-old black female with chest pain, hypertension and diabetes. TECHNIQUE: A myocardial perfusion scan was performed using the single isotope two day protocol with 27 millicuri es technetium 99m sestamibi injected intravenously for the stress and rest images. Pharmacologic stre ss with adenosine was monitored and interpreted by K. , CAT TENDER. FINDINGS: A fixed defect is seen in the distal anteroseptal wall. No reversible defects are identified. GATED SPECT LVEF: 67% WALL MOTION EXAM: No significant wall motion abnormalities are seen. IMPRESSION: No evidence of reversible ischemia. POS: URI
[2019-07-26 13:13] VITALS: BP 146/66; TEMP 98.7
--- NOTE | 2019-07-26 21:37 | DIS ---
DATE OF ADMISSION: 07/25/2019 DATE OF DISCHARGE: 07/26/2019 RESIDENT: Edilia Delgado DO ADMITTING ATTENDING: Christopher Stewart MD DISCHARGE ATTENDING: Christopher Stewart MD CONSULTS: None. PROCEDURES PERFORMED: 1. Chest x-ray on July 25, 2019: Surgical clips in the right axilla region. Heart size is normal. The lungs are clear. 2. Stress test nuclear medicine on July 25, 2019: No evidence of reversible ischemia. The fixed defect is seen in the distal anteroseptal wall. No reversible defects are identified. Estimated ejection fraction is 67%. No significant wall motion abnormalities are seen. Normal stress test. PRIMARY DIAGNOSIS: Atypical chest pain, most likely due to costochondritis versus post radiation pain. SECONDARY DIAGNOSES: 1. Thyroid nodule. 2. History of breast cancer on right, status post mastectomy and radiation therapy. 3. Cirrhosis secondary to hepatitis B. 4. Insulin-dependent diabetes mellitus. 5. Hypertension. 6. Hyperlipidemia. 7. Neuropathy of lower extremities. DISCHARGE MEDICATIONS: 1. Acetaminophen 650 mg p.o. q.4 hours p.r.n. 2. Naproxen 500 mg p.o. b.i.d. 3. Lantus 25 units subcu daily. 4. Lantus 60 units subcu at bedtime. 5. Multivitamin. 6. Humalog sliding scale with meals. 7. Metoprolol tartrate 50 mg p.o. daily. 8. Lisinopril 10 mg p.o. daily. 9. Entecavir 0.5 mg p.o. at bedtime. 10. Hydrochlorothiazide 25 mg p.o. daily. DISCONTINUED MEDICATIONS: None. HISTORY OF PRESENT ILLNESS/HOSPITAL COURSE: The patient is a 59-year-old female, who presented to the emergency department on July 25, 2019, with complaint of right-sided chest pain that started the day prior when she was washing dishes. The pain was described as sharp, radiating from right shoulder into right chest and right neck. The pain worsened with exertion and got better with rest. The patient was admitted to [facility] in October 2018, with similar pain and was found at that time to have acute bronchitis. In addition to the chest pain, the patient states for the last 2 days, she has had a cough, sore throat, and diarrhea with two episodes of loose stools earlier today. The patient reports that she had a stress test at [facility] [place] 1 to 2 years ago that she could not complete at that time. Had a stress test in 2013 performed at [place], which was normal. The patient also has a past medical history of breast cancer on the right, status post mastectomy in 2005. At her last hospital admission in October 2018, chest CTA incidentally found a 4.3 cm thyroid nodule, but the patient says she never followed up on this outpatient. Additionally, the CTA found a linear density in the right upper lobe of the lung extending into the lung apex, which was thought to possibly be due to post radiation changes. The patient also did not follow up on the imaging results with her PCP. The patient additionally reports that she has been out of her home Lantus medication and has only been using a Humalog sliding scale. Her glucose on admission was 356. Chest x-ray performed in the ED was unremarkable. The patient was given nitroglycerin x1 and aspirin 324 mg. On exam, the patient was mildly tender to palpation over the right chest and her right upper back. At the time of history taking, the patient's chest pain that had been described from earlier in the day had resolved. Her EKG showed normal sinus rhythm. The patient was then admitted to observation on the telemetry unit for atypical chest pain. Stress test was performed later in the day on July 25, 2019. The patient's troponins were trended and were all negative. Later in the evening, the patient was counseled about her previous imaging results from October 2018, with concern for thyroid nodule and post radiation changes. The patient was instructed to follow up outpatient with her primary care provider for further workup of these findings. This information was included in her discharge paperwork. On the morning of July 26, 2019, the patient's stress test resulted as normal. The patient had had one additional episode of chest pain for which she was given Tylenol by nursing staff, who reported that the patient's chest pain then resolved. The patient was additionally given a trial of naproxen, which further improved her chest pain. At this point, ACS was much less likely due to be the cause of her chest pain. It is much more likely that the patient's chest pain is due to costochondritis or it is secondary to post radiation related pain. On the afternoon of July 26, 2019, the patient was deemed stable for discharge back to home with encouraged close followup with her primary care provider at [facility]. DISPOSITION: Stable. DISCHARGE INSTRUCTIONS: 1. Location: Home. 2. Diet: Consisting carb. 3. Activity: As tolerated. 4. Followup: Follow up with PCP, Dr. Florencia Luevano, at [facility] [place] in 5 to 7 days for hospital followup. The patient instructed to bring her discharge blood work with her to the appointment, which should include information on October 2018 imaging. Job ID: [id number]
[2019-07-27] MEDS ORDERED: Insulin Glargine 25 UNITS in Pre-Filled Syringe 1 EACH SC SCH (09:00)
== END 2019-07-26 13:20 | disposition home or self-care (01) ==
LOC: ERS 07:52 → 2SW 10:37
PROVIDERS: ADMIT Emergency Medicine; ATTEND Emergency Medicine
DX: R07.89 Other chest pain (principal); E04.1 Nontoxic single thyroid nodule; B19.10 Unspecified viral hepatitis B without hepatic coma; K74.60 Unspecified cirrhosis of liver; I10 Essential (primary) hypertension; E78.5 Hyperlipidemia, unspecified; E11.40 Type 2 diabetes mellitus with diabetic neuropathy, unspecified; Z85.3 Personal history of malignant neoplasm of breast; Z87.891 Personal history of nicotine dependence; Z79.4 Long term (current) use of insulin; Z79.899 Other long term (current) drug therapy; Z88.5 Allergy status to narcotic agent; Z91.040 Latex allergy status; Z91.041 Radiographic dye allergy status
CPT/HCPCS: 71045; 78452; 80048; 80061; 82550; 82962 ×2; 83690; 84484 ×2; 85025; 93005; 93017; 99285; A9500; G0378 ×3; 36415; 36416; 80053; 84443; J0153; J1815

== ENCOUNTER 2019-09-15 09:55 | Emergency (ER) | payer MEDICARE ==
--- NOTE | 2019-09-15 12:33 | RAD ---
LEFT FOOT 3 VIEWS: Date: 09/15/2019 HISTORY: Injury to foot. FINDINGS: Calcaneal spur seen at the plantar fascia insertion on the calcaneus. There are no signs of any acute fracture. Some chronic periosteal change along the metatarsals. IMPRESSION: No evidence of fracture. POS: URI
--- NOTE | 2019-09-15 12:35 | RAD ---
LEFT HAND 3 VIEWS: Date: 09/15/2019 HISTORY: Patient reports tripping on rug, hand pain. FINDINGS: There are no signs of fracture or dislocation. Mild arthritic changes are seen. IMPRESSION: No evidence of fracture. POS: URI
== END 2019-09-15 12:50 | disposition home or self-care (01) ==
LOC: ERS 09:55
DX: S90.32XA Contusion of left foot, initial encounter (principal); S60.222A Contusion of left hand, initial encounter; I10 Essential (primary) hypertension; Z79.4 Long term (current) use of insulin; Z79.899 Other long term (current) drug therapy; W18.09XA Striking against other object with subsequent fall, initial encounter

== ENCOUNTER 2020-05-23 10:31 | Emergency (ER) | payer MEDICARE, MEDICAID ==
[2020-05-23] MEDS ORDERED: Ketorolac Tromethamine 30 MG/ML VIAL ONE (10:49)
[2020-05-23] MEDS ORDERED: Ondansetron PF 4 MG/2 ML Vial ONE (10:49)
[2020-05-23 11:08] LABS: #Eosinphils 0.2 thou/uL (0.0-0.7); #Lymphocytes 2.4 thou/uL (1.20-3.40); #Monocytes 0.9 thou/uL (0.11-0.59); %Basophils 0.3 % (0.0-1.0); %Eosinophils 1.9 % (0.0-10.0); %Lymphocytes 25.4 % (21.0-51.0); %Monocytes 9.5 % (0.0-10.0); %Neutrophils 62.9 % (42.0-75.0); Mean Corpuscular Hemoglobin 27.8 pg (27.0-31.0); Mean Corpuscular Volume 79.4 fL (78.0-98.0); Mean Platelet Volume 10.2 fL (7.4-10.4); Platelet Count 212 thou/uL (130-400); RBC Distribution Width 14.1 % (11.5-14.5); Red Blood Cell (RBC) Count 5.39 mill/uL (4.20-5.40); White Blood Cell (WBC) Count 9.5 thou/uL (4.8-10.8)
--- NOTE | 2020-05-23 11:35 | CT ---
CT of abdomen and pelvis: 05/23/2020 COMPARISON: None HISTORY: Right flank pain, mid right back pain TECHNIQUE: Axial CT imaging at 5 mm intervals from lung bases through pubic symphysis without contras t. Coronal reformatted imaging obtained. FINDINGS: Lack of contrast media limits assessment of the viscera, bowel, vascular structures, and fo r lymphadenopathy. The patient appears status post mastectomy on the right. There is a nodule within the left upper lobe inferiorly on axial image 6 measuring up to approximately 6-7 mm, stable when compared to a CT angiogram of the chest performed 10/30/2018. Coronary arterial calcification is noted. No free intraperitoneal air or fluid. The hepatic parenchyma is diffusely slightly hypodense suggesting a degree of steatosis with probable focal sparing near the gallbladder. The spleen appears normal in size. There is a small sliding-type hiatal hernia. Bilateral adrenal gla nds appear grossly unremarkable. The pancreas appears grossly unremarkable as well. No nephrolithiasis or evidence of obstructive uropathy is seen on either side. Limited assessment of the bowel demonstrates a few scattered diverticula in the region of the descend ing colon. No evidence for diverticulitis or bowel obstruction. The appendix appears unremarkable. There are scattered atherosclerotic calcifications of the abdominal aorta and the arterial structures of the pelvis, not optimally assessed on noncontrast enhanced imaging. Multilevel lower lumbar spine facet hypertrophic change present. IMPRESSION: No nephrolithiasis or evidence of obstructive uropathy.
[2020-05-23 11:37] LABS: ALT (SGPT) 21 U/L (8-55); Albumin 3.9 g/dL (3.4-4.8); Alkaline Phosphatase 78 U/L (40-110); BUN (Urea Nitrogen) 14 mg/dL (9.8-20.1); Bilirubin, Total 0.8 mg/dL (0.2-1.2); Calc. Creatinine Clearance 0 mL/min (70-130); Calcium 9.1 mg/dL (7.8-10.44); Carbon Dioxide 20 mmol/L (23-31); Chloride 105 mmol/L (98-107); Estimated GFR-MDRD 85; Glucose 148 mg/dL (80-115); Sodium 137 mmol/L (136-145)
[2020-05-23 11:51] LABS: AST (SGOT) 19 U/L (5-34); Anion Gap 16 mmol/L (10-20); Globulin 3.4 g/dL (2.4-3.5); Protein, Total 7.3 g/dL (5.8-8.1)
[2020-05-23 12:16] LABS: Bilirubin Negative (Negative); Blood, Urine Negative (Negative); Clarity Clear (Clear); Glucose, Urine (Dipstick) Normal (Negative); Ketone, Urine Negative (Negative); Leukocyte 250 Leu/uL (Negative); Nitrite Negative (Negative); Protein, Urine (Dipstick) 50 mg/dL (Neg-Trace); RBC/HPF 0-3 HPF (0-3); Specific Gravity, Urine 1.025 (1.002-1.036); Squamous Epithelial 0-3 HPF (0-3); Transitional Epithelial 0-3 HPF (None Seen); WBC/HPF 21-50 HPF (0-3); pH, Urine 7.5 (5.0-9.0)
[2020-05-23 12:19] LABS: Bacteria/HPF 1+ HPF (None Seen)
== END 2020-05-23 12:35 | disposition home or self-care (01) ==
LOC: ERS 10:31
DX: N12 Tubulo-interstitial nephritis, not specified as acute or chronic (principal); I10 Essential (primary) hypertension; E11.9 Type 2 diabetes mellitus without complications; Z79.899 Other long term (current) drug therapy; Z79.4 Long term (current) use of insulin
CPT/HCPCS: 74176; 80053; 81003; 81015; 85025; 87086; 96374; 96375; J1885; J2405

== ENCOUNTER 2020-09-13 15:38 | Emergency (ER) | payer MEDICAID, MEDICARE ==
[2020-09-13] MEDS ORDERED: Ketorolac Tromethamine 30 MG/ML VIAL ONE (16:40)
[2020-09-13 16:50] LABS: #Basophils 0.1 thou/uL (0.0-0.2); #Eosinphils 0.1 thou/uL (0.0-0.7); #Lymphocytes 1.6 thou/uL (1.20-3.40); #Monocytes 0.9 thou/uL (0.11-0.59); #Neutrophils 9.7 thou/uL (1.40-6.50); %Basophils 0.5 % (0.0-1.0); %Eosinophils 0.8 % (0.0-10.0); %Monocytes 7.2 % (0.0-10.0); %Neutrophils 78.5 % (42.0-75.0); Hemoglobin 14.7 g/dL (12.0-16.0); Mean Corpuscular HGB CONC 35.1 g/dL (32.0-36.0); Mean Corpuscular Hemoglobin 27.7 pg (27.0-31.0); Mean Platelet Volume 9.6 fL (7.4-10.4); Platelet Count 194 thou/uL (130-400); RBC Distribution Width 13.9 % (11.5-14.5); White Blood Cell (WBC) Count 12.4 thou/uL (4.8-10.8)
--- NOTE | 2020-09-13 17:03 | RAD ---
PORTABLE CHEST: 09/13/20 INDICATIONS: Cough. COMPARISON: 07/25/19. Elevated right hemidiaphragm is stable. No focal consolidation or confluent infiltrate. The heart and mediastinum unremarkable. Vasculature n ormal. Surgical clips in the right axilla again noted. IMPRESSION: No acute process. Subtle ground glass infiltrates in the lower lungs are not completely excluded. If there is concern for COVID pneumonia, recommend short term follow-up. POS: AGW
[2020-09-13 17:11] LABS: ALT (SGPT) 22 U/L (8-55); AST (SGOT) 19 U/L (5-34); Albumin 4.2 g/dL (3.4-4.8); Alkaline Phosphatase 76 U/L (40-110); Anion Gap 18 mmol/L (10-20); BUN (Urea Nitrogen) 10 mg/dL (9.8-20.1); Bilirubin, Total 0.9 mg/dL (0.2-1.2); Calc. Creatinine Clearance 0 mL/min (70-130); Calcium 9.2 mg/dL (7.8-10.44); Carbon Dioxide 23 mmol/L (23-31); Chloride 102 mmol/L (98-107); Globulin 3.3 g/dL (2.4-3.5); Glucose 119 mg/dL (80-115); Potassium 3.7 mmol/L (3.5-5.1); Protein, Total 7.5 g/dL (5.8-8.1); Sodium 139 mmol/L (136-145)
[2020-09-13] MEDS ORDERED: Lorazepam 2 MG/ML VIAL ONE (17:19)
[2020-09-13] MEDS ORDERED: Rocuronium Bromide 10 MG/ML (10ML VIAL) ONE (18:07)
[2020-09-13 18:45] LABS: Bilirubin Negative (Negative); Blood, Urine Negative (Negative); Clarity Clear (Clear); Glucose, Urine (Dipstick) Normal (Negative); Ketone, Urine Negative (Negative); Leukocyte 25 Leu/uL (Negative); Nitrite Negative (Negative); Protein, Urine (Dipstick) 30 mg/dL (Neg-Trace); RBC/HPF 0-3 HPF (0-3); Specific Gravity, Urine 1.013 (1.002-1.036); Squamous Epithelial 0-3 HPF (0-3); Urobilinogen Normal mg/dL (Less than 2)
[2020-09-13 18:51] LABS: Bacteria/HPF 1+ HPF (None Seen)
[2020-09-14 02:43] LABS: SARS-CoV-2 PCR by NAA Not Detected (NotDetected)
--- NOTE | 2020-09-15 16:17 | EKG ---
Test Reason : Blood Pressure : / mmHG Vent. Rate : 103 BPM Atrial Rate : 103 BPM P-R Int : 174 ms QRS Dur : 088 ms QT Int : 330 ms P-R-T Axes : 048 -02 049 degrees QTc Int : 432 ms Sinus tachycardia Minimal voltage criteria for LVH, may be normal variant Possible Anterior infarct , age undetermined Abnormal ECG Confirmed by JUANITO JENKINS DO ([id number]), purchase request editor JONATHAN KNIGHT ([id number]) on 09/15/2020 4:16:36 PM Referred By: Confirmed By:JUANITO JENKINS DO
== END 2020-09-13 19:40 | disposition home or self-care (01) ==
LOC: ERS 15:38
DX: U07.1 COVID-19 (principal); J12.82 Pneumonia due to coronavirus disease 2019; E11.9 Type 2 diabetes mellitus without complications; K74.60 Unspecified cirrhosis of liver; E78.00 Pure hypercholesterolemia, unspecified; B19.10 Unspecified viral hepatitis B without hepatic coma; Z79.899 Other long term (current) drug therapy; Z79.4 Long term (current) use of insulin
CPT/HCPCS: 71045; 80053; 85025; 93005; 96374; 99284; U0003; U0005; 81003; 81015; 87635; J1885; J2060

== ENCOUNTER 2021-01-31 22:02 | Emergency (ER) | payer MEDICARE ==
[2021-01-31] MEDS ORDERED: cefTRIAXone\\ROCEPHIN 1 GM VIAL ONE (23:44)
[2021-01-31 23:53] LABS: #Eosinphils 0.1 thou/uL (0.0-0.7); #Lymphocytes 2.3 thou/uL (1.20-3.40); #Monocytes 1.6 thou/uL (0.11-0.59); #Neutrophils 11.2 thou/uL (1.40-6.50); %Basophils 0.3 % (0.0-1.0); %Eosinophils 0.8 % (0.0-10.0); %Lymphocytes 14.9 % (21.0-51.0); %Monocytes 10.2 % (0.0-10.0); %Neutrophils 73.8 % (42.0-75.0); Hemoglobin 15.3 g/dL (12.0-16.0); Mean Corpuscular HGB CONC 34.3 g/dL (32.0-36.0); Mean Corpuscular Hemoglobin 27.6 pg (27.0-31.0); Mean Corpuscular Volume 80.7 fL (78.0-98.0); Mean Platelet Volume 9.3 fL (7.4-10.4); Platelet Count 191 thou/uL (130-400); RBC Distribution Width 13.9 % (11.5-14.5); Red Blood Cell (RBC) Count 5.52 mill/uL (4.20-5.40); White Blood Cell (WBC) Count 15.1 thou/uL (4.8-10.8)
[2021-02-01 00:12] LABS: ALT (SGPT) 19 U/L (8-55); AST (SGOT) 18 U/L (5-34); Albumin 4.2 g/dL (3.4-4.8); Alkaline Phosphatase 82 U/L (40-110); Anion Gap 17 mmol/L (10-20); BUN (Urea Nitrogen) 13 mg/dL (9.8-20.1); Bilirubin, Total 0.7 mg/dL (0.2-1.2); Calc. Creatinine Clearance 0 mL/min (70-130); Calcium 9.5 mg/dL (7.8-10.44); Carbon Dioxide 25 mmol/L (23-31); Chloride 99 mmol/L (98-107); Globulin 3.4 g/dL (2.4-3.5); Glucose 170 mg/dL (80-115); Potassium 3.6 mmol/L (3.5-5.1); Protein, Total 7.6 g/dL (5.8-8.1); Sodium 137 mmol/L (136-145)
[2021-02-01] MEDS ORDERED: Acetaminophen 500 MG TAB ONE (00:14)
[2021-02-01] MEDS ORDERED: Azithromycin 500 MG VIAL ONE (01:04)
[2021-02-01 01:11] LABS: SARS-CoV-2 NAA Rapid Test Not Detected (NotDetected)
[2021-02-01 02:26] LABS: Bacteria/HPF None Seen HPF (None Seen); Bilirubin Negative (Negative); Blood, Urine Negative (Negative); Clarity Clear (Clear); Glucose, Urine (Dipstick) Normal (Negative); Ketone, Urine Negative (Negative); Leukocyte 25 Leu/uL (Negative); Nitrite Negative (Negative); Protein, Urine (Dipstick) 10 mg/dL (Neg-Trace); RBC/HPF 0-3 HPF (0-3); Specific Gravity, Urine 1.017 (1.002-1.036); Squamous Epithelial None Seen HPF (0-3); Urobilinogen Normal mg/dL (Less than 2)
== END 2021-02-01 02:50 | disposition home or self-care (01) ==
LOC: ERS 22:02
DX: J18.9 Pneumonia, unspecified organism (principal); Z20.822 Contact with and (suspected) exposure to COVID-19; E78.00 Pure hypercholesterolemia, unspecified; E11.40 Type 2 diabetes mellitus with diabetic neuropathy, unspecified; I10 Essential (primary) hypertension
CPT/HCPCS: 71045; 80053; 83605; 85025; 87040; 87086; 96365; 96367; 99283; U0002; U0005; 36415; 81003; 81015; J0456; J0696

== ENCOUNTER 2021-02-05 13:30 | Emergency (ER) | payer MEDICARE | END 2021-02-05 15:28 | disposition home or self-care (01) | LOC: ERS 13:30 | DX: K04.7 Periapical abscess without sinus (principal); K02.9 Dental caries, unspecified; K03.81 Cracked tooth; I10 Essential (primary) hypertension; E11.40 Type 2 diabetes mellitus with diabetic neuropathy, unspecified; E78.00 Pure hypercholesterolemia, unspecified; Z86.19 Personal history of other infectious and parasitic diseases | CPT/HCPCS: 99282 ==

== ENCOUNTER 2021-08-09 19:22 | Emergency (ER) | payer MEDICARE ==
[2021-08-09 20:51] LABS: SARS-CoV-2 NAA Rapid Test DETECTED (NotDetected)
[2021-08-09 21:26] LABS: #Eosinphils 0.1 thou/uL (0.0-0.7); #Lymphocytes 0.8 thou/uL (1.20-3.40); #Neutrophils 6.9 thou/uL (1.40-6.50); %Eosinophils 1.3 % (0.0-10.0); %Lymphocytes 9.5 % (21.0-51.0); %Monocytes 10.8 % (0.0-10.0); %Neutrophils 78.4 % (42.0-75.0); Hemoglobin 13.7 g/dL (12.0-16.0); Mean Corpuscular HGB CONC 35.8 g/dL (32.0-36.0); Mean Platelet Volume 9.4 fL (7.4-10.4); Platelet Count 170 thou/uL (130-400); RBC Distribution Width 13.9 % (11.5-14.5); Red Blood Cell (RBC) Count 4.74 mill/uL (4.20-5.40); White Blood Cell (WBC) Count 8.8 thou/uL (4.8-10.8)
[2021-08-09 21:51] LABS: ALT (SGPT) 22 U/L (8-55); AST (SGOT) 21 U/L (5-34); Albumin 4.1 g/dL (3.4-4.8); Alkaline Phosphatase 62 U/L (40-110); Anion Gap 13 mmol/L (10-20); BUN (Urea Nitrogen) 14 mg/dL (9.8-20.1); Bilirubin, Total 0.5 mg/dL (0.2-1.2); Calc. Creatinine Clearance 0 mL/min (70-130); Calcium 9.8 mg/dL (7.8-10.44); Carbon Dioxide 26 mmol/L (23-31); Chloride 102 mmol/L (98-107); Globulin 3.3 g/dL (2.4-3.5); Glucose 109 mg/dL (80-115); Potassium 3.7 mmol/L (3.5-5.1); Protein, Total 7.4 g/dL (5.8-8.1); Sodium 137 mmol/L (136-145)
== END 2021-08-09 22:10 | disposition home or self-care (01) ==
LOC: ERS 19:22
DX: U07.1 COVID-19 (principal); I10 Essential (primary) hypertension; E11.9 Type 2 diabetes mellitus without complications; E78.00 Pure hypercholesterolemia, unspecified; Z79.4 Long term (current) use of insulin; Z79.899 Other long term (current) drug therapy
CPT/HCPCS: 0240U; 71046; 80053; 85025; 36415

== ENCOUNTER 2022-04-11 12:02 | Emergency (ER) | payer MEDICARE, OTHER ==
[2022-04-11 13:17] LABS: #Eosinphils 0.2 thou/uL (0.0-0.7); #Lymphocytes 2.3 thou/uL (1.20-3.40); #Monocytes 0.6 thou/uL (0.11-0.59); #Neutrophils 5.5 thou/uL (1.40-6.50); %Basophils 0.4 % (0.0-1.0); %Eosinophils 1.9 % (0.0-10.0); %Lymphocytes 26.9 % (21.0-51.0); %Monocytes 6.9 % (0.0-10.0); %Neutrophils 63.9 % (42.0-75.0); Hemoglobin 14.2 g/dL (12.0-16.0); Mean Corpuscular HGB CONC 35.6 g/dL (32.0-36.0); Mean Corpuscular Volume 81.5 fL (78.0-98.0); Mean Platelet Volume 9.9 fL (7.4-10.4); Platelet Count 200 thou/uL (130-400); RBC Distribution Width 13.7 % (11.5-14.5); Red Blood Cell (RBC) Count 4.89 mill/uL (4.20-5.40); White Blood Cell (WBC) Count 8.7 thou/uL (4.8-10.8)
[2022-04-11 13:37] LABS: ALT (SGPT) 22 U/L (8-55); AST (SGOT) 18 U/L (5-34); Albumin 4.1 g/dL (3.4-4.8); Alkaline Phosphatase 66 U/L (40-110); Anion Gap 17 mmol/L (10-20); BUN (Urea Nitrogen) 22 mg/dL (9.8-20.1); Bilirubin, Total 0.7 mg/dL (0.2-1.2); Calc. Creatinine Clearance 0 mL/min (70-130); Carbon Dioxide 23 mmol/L (23-31); Chloride 101 mmol/L (98-107); Estimated GFR 54; Globulin 3.3 g/dL (2.4-3.5); Glucose 410 mg/dL (80-115); Potassium 4.2 mmol/L (3.5-5.1); Protein, Total 7.4 g/dL (5.8-8.1); Sodium 137 mmol/L (136-145)
[2022-04-11] MEDS ORDERED: HYDROcodone/Acetaminophen 10/325 mg Tablet ONE (14:56)
== END 2022-04-11 15:14 | disposition home or self-care (01) ==
LOC: ERS 12:02
DX: E11.40 Type 2 diabetes mellitus with diabetic neuropathy, unspecified (principal); I10 Essential (primary) hypertension; E78.00 Pure hypercholesterolemia, unspecified
CPT/HCPCS: 36415; 80053; 85025; 94760

== ENCOUNTER 2022-06-08 22:24 | Emergency (ER) | payer OTHER ==
[2022-06-08] MEDS ORDERED: Orphenadrine Citrate 60 MG/2 ML VIAL ONE (22:49)
[2022-06-08] MEDS ORDERED: Diazepam 5 MG TAB ONE (23:34)
== END 2022-06-09 00:12 | disposition home or self-care (01) ==
LOC: ERS 22:24
DX: M62.830 Muscle spasm of back (principal); E11.9 Type 2 diabetes mellitus without complications; I10 Essential (primary) hypertension; E78.5 Hyperlipidemia, unspecified
CPT/HCPCS: 72100; 96372; J2360

== ENCOUNTER 2022-11-24 07:29 | Emergency (ER) | payer MEDICAID, OTHER ==
[2022-11-24] MEDS ORDERED: Ketorolac Tromethamine 30 MG/ML VIAL ONE (09:05)
[2022-11-24 09:09] LABS: Bacteria/HPF 1+ HPF (None Seen); Bilirubin Negative (Negative); Blood, Urine Negative (Negative); Clarity Clear (Clear); Glucose, Urine (Dipstick) 300 mg/dL (Negative); Ketone, Urine Negative (Negative); Leukocyte 250 Leu/uL (Negative); Nitrite Negative (Negative); Protein, Urine (Dipstick) Negative (Neg-Trace); RBC/HPF 0-3 HPF (0-3); Specific Gravity, Urine 1.016 (1.002-1.036); Squamous Epithelial 0-3 HPF (0-3); Urobilinogen Normal mg/dL (Less than 2)
[2022-11-24 09:15] LABS: #Basophils 0.1 thou/uL (0.0-0.2); #Eosinphils 0.2 thou/uL (0.0-0.7); #Lymphocytes 2.8 thou/uL (1.20-3.40); #Monocytes 0.6 thou/uL (0.11-0.59); #Neutrophils 5.1 thou/uL (1.40-6.50); %Basophils 0.8 % (0.0-1.0); %Lymphocytes 31.8 % (21.0-51.0); %Monocytes 7.3 % (0.0-10.0); %Neutrophils 58.2 % (42.0-75.0); Hemoglobin 14.7 g/dL (12.0-16.0); Mean Corpuscular Volume 79.9 fl (78.0-98.0); Mean Platelet Volume 10.2 fL (7.4-10.4); Platelet Count 190 10x3/uL (130-400); Red Blood Cell (RBC) Count 5.27 mill/uL (4.20-5.40); White Blood Cell (WBC) Count 8.8 10x3/uL (4.8-10.8)
[2022-11-24] MEDS ORDERED: Orphenadrine Citrate 60 MG/2 ML VIAL SLOW IVP SCH (09:15)
[2022-11-24 09:25] LABS: SARS-CoV-2 NAA Rapid Test Not Detected (NotDetected)
[2022-11-24 09:41] LABS: ALT (SGPT) 20 U/L (8-55); AST (SGOT) 19 U/L (5-34); Albumin 4.4 g/dL (3.4-4.8); Alkaline Phosphatase 64 U/L (40-110); Anion Gap 14 mmol/L (10-20); BUN (Urea Nitrogen) 17 mg/dL (9.8-20.1); Bilirubin, Total 0.6 mg/dL (0.2-1.2); Calc. Creatinine Clearance 0 mL/min (70-130); Calcium 9.5 mg/dL (7.8-10.44); Carbon Dioxide 24 mmol/L (23-31); Chloride 104 mmol/L (98-107); Estimated GFR 72; Globulin 3.2 g/dL (2.4-3.5); Glucose 141 mg/dL (80-115); Potassium 3.5 mmol/L (3.5-5.1); Protein, Total 7.6 g/dL (5.8-8.1); Sodium 138 mmol/L (136-145)
== END 2022-11-24 11:03 | disposition home or self-care (01) ==
LOC: ERS 07:29
DX: J18.9 Pneumonia, unspecified organism (principal); N39.0 Urinary tract infection, site not specified; I10 Essential (primary) hypertension; E78.5 Hyperlipidemia, unspecified; E11.40 Type 2 diabetes mellitus with diabetic neuropathy, unspecified; Z20.822 Contact with and (suspected) exposure to COVID-19; Z79.4 Long term (current) use of insulin; Z79.899 Other long term (current) drug therapy
CPT/HCPCS: 0240U; 71045; 80053; 85025; 87086; 81003; 81015; 96374; 96375; J1885; J2360

== ENCOUNTER 2023-04-04 18:44 | Emergency (ER) | payer OTHER, MEDICAID ==
[2023-04-04] MEDS ORDERED: Acetaminophen 500 MG TAB ONE (19:53)
[2023-04-04 21:13] LABS: #Eosinphils 0.2 thou/uL (0.0-0.7); #Monocytes 0.8 thou/uL (0.11-0.59); %Basophils 0.3 % (0.0-1.0); %Eosinophils 1.9 % (0.0-10.0); %Lymphocytes 29.8 % (21.0-51.0); %Monocytes 8.3 % (0.0-10.0); %Neutrophils 59.3 % (42.0-75.0); Hemoglobin 13.5 g/dL (12.0-16.0); Mean Corpuscular HGB CONC 34.6 g/dL (32.0-36.0); Mean Corpuscular Hemoglobin 27.7 pg (27.0-31.0); Mean Corpuscular Volume 80.1 fl (78.0-98.0); Mean Platelet Volume 11.6 fL (7.4-10.4); Platelet Count 226 10x3/uL (130-400); RBC Distribution Width 14.8 % (11.5-14.5); Red Blood Cell (RBC) Count 4.87 mill/uL (4.20-5.40)
[2023-04-04 21:38] LABS: ALT (SGPT) 21 U/L (8-55); AST (SGOT) 22 U/L (5-34); Albumin 4.1 g/dL (3.4-4.8); Alkaline Phosphatase 63 U/L (40-110); Anion Gap 15 mmol/L (10-20); BUN (Urea Nitrogen) 23 mg/dL (9.8-20.1); Bilirubin, Total 0.4 mg/dL (0.2-1.2); Calc. Creatinine Clearance 0 mL/min (70-130); Calcium 9.4 mg/dL (7.8-10.44); Carbon Dioxide 22 mmol/L (23-31); Chloride 108 mmol/L (98-107); Estimated GFR 63; Globulin 3.3 g/dL (2.4-3.5); Glucose 141 mg/dL (80-115); Potassium 4.2 mmol/L (3.5-5.1); Protein, Total 7.4 g/dL (5.8-8.1); Sodium 141 mmol/L (136-145)
[2023-04-04 22:09] LABS: SARS-CoV-2 NAA Rapid Test Not Detected (NotDetected)
== END 2023-04-04 22:20 | disposition home or self-care (01) ==
LOC: ERS 18:44
DX: S92.405A Nondisplaced unspecified fracture of left great toe, initial encounter for closed fracture (principal); J18.9 Pneumonia, unspecified organism; I10 Essential (primary) hypertension; E78.5 Hyperlipidemia, unspecified; E11.40 Type 2 diabetes mellitus with diabetic neuropathy, unspecified; W10.8XXA Fall (on) (from) other stairs and steps, initial encounter; Z20.822 Contact with and (suspected) exposure to COVID-19
CPT/HCPCS: 0240U; 71045; 73630; 80053; 83605; 85025; 87040; 36415

== ENCOUNTER 2023-05-15 14:03 | Emergency (ER) | payer OTHER, MEDICAID | END 2023-05-15 16:13 | disposition home or self-care (01) | LOC: ERS 14:03 | DX: M79.601 Pain in right arm (principal); I10 Essential (primary) hypertension; E78.5 Hyperlipidemia, unspecified; E11.40 Type 2 diabetes mellitus with diabetic neuropathy, unspecified; W19.XXXA Unspecified fall, initial encounter; Z79.899 Other long term (current) drug therapy ==

== ENCOUNTER 2023-07-01 10:25 | Outpatient (CLI) | payer OTHER, MEDICAID | END 2023-07-01 10:26 | disposition home or self-care (01) | LOC: BICRAD 10:25 | PROVIDERS: ATTEND Physician Assistant Surgical | DX: S92.425A Nondisplaced fracture of distal phalanx of left great toe, initial encounter for closed fracture (principal); S92.412D Displaced fracture of proximal phalanx of left great toe, subsequent encounter for fracture with routine healing ==

== ENCOUNTER 2025-06-27 14:00 | Emergency (ER) | payer OTHER | END 2025-06-27 15:38 | disposition home or self-care (01) | LOC: ERS 14:00 | DX: S76.011A Strain of muscle, fascia and tendon of right hip, initial encounter (principal); M54.50 Low back pain, unspecified; E11.40 Type 2 diabetes mellitus with diabetic neuropathy, unspecified; I10 Essential (primary) hypertension; Z79.4 Long term (current) use of insulin; Z79.899 Other long term (current) drug therapy; W18.30XA Fall on same level, unspecified, initial encounter | CPT/HCPCS: 72100; 99283 ==